=== PATIENT | male | born 2000 | race Caucasian/White ===

== ENCOUNTER 2023-05-21 11:14 | Emergency (ER) | payer OTHER, SELFPAY ==
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
[2023-05-21 11:31] VITALS: BP 131/61; PULSE 76; RESP 18; TEMP 37; O2SAT 98
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
== END 2023-05-21 12:51 | disposition home or self-care (01) ==
PROVIDERS: Emergency Provider Nurse Practitioner Family
DX: S50.02XA Contusion of left elbow, initial encounter (principal); S80.02XA Contusion of left knee, initial encounter; S13.4XXA Sprain of ligaments of cervical spine, initial encounter; S16.1XXA Strain of muscle, fascia and tendon at neck level, initial encounter; V43.52XA Car driver injured in collision with other type car in traffic accident, initial encounter
CPT/HCPCS: 73080; 73564; 99214; G0463